=== PATIENT | female | born 1990 | race Caucasian/White ===

== ENCOUNTER 2016-06-12 19:18 | Inpatient (IN) | payer MEDICAID ==
[~2016-06-12] VITALS: Ht 162.6 cm; Wt 67.3 kg
[~2016-06-12 19:18] MED LIST: CEPH-443 PO
[2016-06-12 19:41] VITALS: Ht 162.6 cm; Wt 67.3 kg
[2016-06-12] MEDS ORDERED: PRENAT PO (19:41)
[2016-06-12 19:45] VITALS: BP 128/76; PULSE 67; RESP 18
[2016-06-12] MEDS ORDERED: AMPICILLIN 2 GM/NS (PMX) 100 ML ONE (19:45)
--- NOTE | 2016-06-12 19:50 | TRIAGE ---
OB Triage Datetime Report Generated by CPN: 06/12/2016 19:50 Datetime: 06/12/2016 19:41 EGA: 37.6 Arrived By: Wheelchair Arrived From: Home Chief Complaint: Contractions Movement: Present Contractions: Regular Time Contractions Began: 06/12/2016 17:00 Contractions: Every 2 minutes Rupture of Membranes: Denies Vaginal Bleeding: None Vaginal Discharge: Denies Recent Sexual Intercouse: Denies Abdominal Trauma: Not Applicable Patient Complaints: Contractions Time Provider Notified: 06/12/2016 19:37 Provider Notified: Dr. Barnard Initial Plan: CEFM, VE Datetime: 06/12/2016 19:30 Membrane Status: Intact Datetime: 06/12/2016 19:29 Vaginal Exam Dilatation (cms): 8.0 Datetime: 06/12/2016 19:26 Vaginal Exam Dilatation (cms): 7.5 Effacement (%): 90 Station: -2 Exam By: Yobani Milner RN Membrane Status: Intact Vaginal Bleeding: None Cervix, Consistency: Soft Cervix, Position: Anterior Presentation 'A': Cephalic Datetime: 06/12/2016 19:20 Time of Arrival: 06/12/2016 19:13
[2016-06-12] MEDS: LACTATED RINGER'S 1,000 ML IV SCH (19:58)
[2016-06-12] MEDS ORDERED: OXYTOCIN 30 UNITS/LR 500 ML IV PRN ×2 (20:00→22:00)
[2016-06-12] MEDS ORDERED: CARBOPROST 250 MCG INJ IM PRN ×2 (20:00→22:00)
[2016-06-12] MEDS ORDERED: LACTATED RINGER'S 1,000 ML IV PRN (20:00)
[2016-06-12] MEDS ORDERED: LIDOCAINE 1% (MPF) 30 ML INJ INJ PRN (20:00)
[2016-06-12] MEDS ORDERED: METHYLERGONOVINE 0.2 MG INJ IM PRN ×2 (20:00→22:00)
[2016-06-12] MEDS ORDERED: BUTORPHANOL 2 MG INJ IV PRN (20:00)
[2016-06-12] MEDS ORDERED: OXYTOCIN 30 UNITS/LR 500 ML IV SCH ×2 (20:00)
[2016-06-12] MEDS ORDERED: IBUPROFEN 600 MG TAB PO PRN (20:00)
[2016-06-12] MEDS ORDERED: AMPICILLIN 2 GM/NS (PMX) 100 ML IV ONE (20:00)
[2016-06-12] MEDS ORDERED: MISOPROSTOL 200 MCG TAB PR PRN ×2 (20:00→22:00)
[2016-06-12 20:08] LABS: ADD SCAN DIFF NO
[2016-06-12 20:10] LABS: BASOPHILS % 0.4 % (0.0-2.0); EOSINOPHILS % 0.2 % (0.0-7.0); HEMATOCRIT 38.3 % (37.0-47.0); HEMOGLOBIN 13.2 g/dl (12.0-16.0); LYMPHOCYTES # 3.3 10^3/ul (0.8-2.9); LYMPHOCYTES % 34.5 % (15.0-51.0); MEAN CORPUSCULAR HEMOGLOBIN 31.3 pg (29.0-33.0); MEAN CORPUSCULAR HGB CONC 34.5 g/dl (32.0-37.0); MEAN CORPUSCULAR VOLUME 90.8 fl (82.0-101.0); MEAN PLATELET VOLUME 10.6 fl (7.4-10.4); MONOCYTE # 0.5 10^3/ul (0.3-0.9); MONOCYTES % 4.8 % (0.0-11.0); NEUTROPHIL # 5.7 10^3/ul (1.6-7.5); NEUTROPHILS % 59.7 % (39.0-77.0); PLATELET COUNT 269 10^3/UL (140-415); RED BLOOD COUNT 4.22 10^6/ul (4.20-5.40); WHITE BLOOD COUNT 9.5 10^3/ul (4.8-10.8)
[2016-06-12 20:24] LABS: INR 0.83; PROTIME 11.4 Sec (12.2-14.2); PT RATIO 0.9
[2016-06-12 20:26] LABS: PARTIAL THROMBOPLASTIN TIME 22.7 Sec (25.0-35.0)
[2016-06-12] MEDS ORDERED: DEXTROSE 5%-LR 1,000 ML IV SCH (21:59)
[2016-06-12] MEDS ORDERED: LACTATED RINGER'S 1,000 ML IV* SCH (21:59)
[2016-06-12] MEDS ORDERED: WITCH HAZEL/GLYCERIN PAD PR PRN (22:00)
[2016-06-12] MEDS ORDERED: LANOLIN 7 GM TUBE TOP PRN (22:00)
[2016-06-12] MEDS ORDERED: DIBUCAINE 1% 30 GM OINT PR PRN (22:00)
[2016-06-12] MEDS ORDERED: BENZOCAINE 20% 56 ML SPRAY TOP PRN (22:00)
[2016-06-12] MEDS ORDERED: ZOLPIDEM 5 MG TAB PO PRN (22:00)
[2016-06-12] MEDS ORDERED: DIPHENHYDRAMINE 50 MG INJ IV PRN (22:00)
[2016-06-12] MEDS ORDERED: SENNA/DOCUSATE NA (8.6MG/50MG) TAB PO PRN (22:00)
[2016-06-12] MEDS ORDERED: ACETAMINOPHEN 325 MG TAB PO PRN (22:00)
[2016-06-12] MEDS ORDERED: ONDANSETRON 4 MG INJ IV PRN (22:00)
[2016-06-12] MEDS ORDERED: OXYCODONE/ASPIRIN (4.88/325) TAB PO PRN (22:00)
--- NOTE | 2016-06-12 22:08 | HP ---
Date/Time of Note Date/Time of Note DATE: 06/12/16 TIME: 22:01 OB - History Hx of Present Free Text/Dictation 26 Year-old with SIUP at 37 6/7 weeks presents with a chief complaint of ucs. She has been receiving her care with a clinic at [facility]. She states good movement. She denies nausea, vomiting, shortness of breath, chest pain, and abdominal pain between contractions, headache, visual changes, vaginal bleeding or LOF. Estimated Due Date: Jun 27, 2016 : 2 Para: 1 Spontaneous : 0 Therapeutic : 0 Care: Good Care Ultrasounds: Normal mid trimester US Obstetrical Complications: None Medical Complications: None Past Family/Social History * Past Medical, Surgical, Family and Obstetric Histories reviewed from chart. OB Admission Exam Vital Signs Vital Signs Vital Signs Date Time Temp Pulse Resp B/P Pulse Ox O2 Delivery O2 Flow Rate FiO2 06/12/16 19:45 98.5 67 18 128/76 Room Air Physical Exam HEENT: WNL Heart: Rhythm Normal Lungs: Clear Abdomen: WNL Extremities: Normal Cervical Dilatation: 7cm Station: -2 Membranes: Intact Heart Rate: 140's Accelerations: Accelerations Present Decelerations: No Decelerations Varibility: Moderate Contractions on Admission: < 5 Minutes Apart Intensity: Firm Last 72 hours Lab Results CBC & BMP 06/12/16 19:58 OB Assessment/Plan Other plan: 26 Year-old with SIUP at 37 6/7 weeks in labor. - FHR: No sign of metabolic acidosis- Category I - Continious EFM, toco - CBC, blood type and screen - Analgesia options with R/B/A discussed in detail with patient - Epidural per patient request - Please see the orders - Obtain labs and screening us from the clinic tomorrow Admission, procedures, expectations, risks and possible complications have been discussed in detail with the patient. Risk of vaginal delivery including but not limited to bleeding, infection, cervical laceration, placental retention, injury to fetus, blood transfusion, blood transfusion related infection, risk of anesthesia, adhesion, cervical laceration, episiotomy/laceration, possible delivery with risk of bleeding, infection, injury to other organs ( bowel, bladder, ureter, vessels, nerves), injury to fetus, blood transfusion, blood transfusion related infection, risk of anesthesia, scar and hernia formation, needs for future , removal of uterus or any other indicated surgery discussed with the patient. She expressed understanding and repeats the risks. All of her questions were answered; all appropriate consents will be signed. PHYSICIAN'S VERIFICATION OF INFORMED CONSENT: The patient was counseled regarding the procedure, its indications, risks, potential complications and alternatives and any questions were answered. Consent was obtained. PLANNED PROCEDURE/TREATMENT: Vaginal delivery with possible vacuum/forceps delivery episiotomy, repair of laceration possible delivery PHYSICIAN'S VERIFICATION OF INFORMED CONSENT FOR BLOOD TRANSFUSION: There is a reasonable possibility that blood transfusion will be necessary as a result of the patient's procedure. I have discussed the following with the patient/patient's legal sales representative sales manager: An explanation of the benefits and risks of the transfusion of blood or blood products and the possible alternatives. Al questions have been answered to the patient's/patients legal representatives satisfaction. INFORMED CONSENT: The patient has been informed of: - The nature of the proposed care, treatment, services, medic- Potential benefits, risks or side effects, including potential problems related to recuperation. - The likelihood of achieving care treatment and service goals. - Reasonable alternatives to the proposed care, treatment and service. - The relevant risks, benefits and side effects related to alternatives, including the possible results of not receiving care, treatment and services. - When indicated, any limitations on the confidentiality of information learned from or about the patient. - If appropriate, the risks, benefits and alternatives of the drugs to be used for sedation/analgesia including moderate sedation. СЕРГЕЙ STOLL Jun 12, 2016 22:08
--- NOTE | 2016-06-12 22:10 | LDN ---
Date/Time of Note Date/Time of Note DATE: 06/12/16 TIME: 22:08 Delivery Summary 26 Year-old with SIUP at 37 6/7 weeks delivered a female over first degree laceration at 20:27 Placenta Delivered: Spontaneously Perineum intact?: No Anesthesia type: Local Estimated blood loss: 83 Sponge & Needle done & correct: Yes All needle counts correct: Yes Any foreign bodies felt in the: No Problems: Infant Delivery Information Sex Sex: female Apgars 1 Minute: 9 5 Minute: 10 Suctioning Nose & mouth suctioned at manjit: Yes Umbilical Cord Umbilical cord with: 3 Vessels Cord presentations: no nuchal cord Cord Blood was obtained: Yes СЕРГЕЙ STOLL Jun 12, 2016 22:09
[2016-06-12 23:05] VITALS: BP 117/67; PULSE 70; RESP 18
[2016-06-12 23:35] VITALS: BP 128/75; PULSE 62; RESP 18
[2016-06-13] MEDS ORDERED: AMPICILLIN 1 GM/NS (PMX) 50 ML IV SCH
[2016-06-13] MEDS: IBUPROFEN 600 MG TAB PO SCH ×4 (00:29→18:21)
[2016-06-13] MEDS: LACTATED RINGER'S 1,000 ML IV SCH (03:11)
[2016-06-13 04:00] VITALS: BP 119/62; PULSE 58; RESP 18
[2016-06-13 07:21] LABS: ADD SCAN DIFF NO
[2016-06-13 07:36] LABS: BASOPHILS % 0.2 % (0.0-2.0); EOSINOPHILS % 0.1 % (0.0-7.0); HEMATOCRIT 31.7 % (37.0-47.0); HEMOGLOBIN 10.6 g/dl (12.0-16.0); LYMPHOCYTES # 3.2 10^3/ul (0.8-2.9); LYMPHOCYTES % 22.5 % (15.0-51.0); MEAN CORPUSCULAR HEMOGLOBIN 30.8 pg (29.0-33.0); MEAN CORPUSCULAR HGB CONC 33.4 g/dl (32.0-37.0); MEAN CORPUSCULAR VOLUME 92.2 fl (82.0-101.0); MEAN PLATELET VOLUME 10.7 fl (7.4-10.4); MONOCYTES % 7.2 % (0.0-11.0); NEUTROPHILS % 69.7 % (39.0-77.0); PLATELET COUNT 212 10^3/UL (140-415); RED BLOOD COUNT 3.44 10^6/ul (4.20-5.40); RED CELL DISTRIBUTION WIDTH 12.9 % (11.5-14.5); WHITE BLOOD COUNT 14.4 10^3/ul (4.8-10.8)
[2016-06-13 08:30] VITALS: BP 111/66; PULSE 59; RESP 18
[2016-06-13 12:15] VITALS: BP 108/65; PULSE 61; RESP 20
[2016-06-13 16:00] VITALS: BP 118/69; PULSE 61; RESP 19
--- NOTE | 2016-06-13 18:53 | QN ---
Documentation Comment PPD#1 is stable afebrile tolerates diet No VB Voids +BM Vs stable Gen NAD Abd soft NT ND Genitalia No blood at perinium --->discharge plan tomorrow ROMÁN ANGEL M.D. Jun 13, 2016 18:53
[2016-06-13 19:45] VITALS: BP 115/76; PULSE 76; RESP 18
[2016-06-14] MEDS: IBUPROFEN 600 MG TAB PO SCH ×3 (00:25→12:03)
[2016-06-14 04:20] VITALS: BP 115/69; PULSE 75; RESP 20
[2016-06-14 08:06] VITALS: BP 126/77; PULSE 61; RESP 18
[2016-06-14] MEDS ORDERED: DIPHTH/TET/ACEL PERTUSS (ADULT) 0.5 ML VIAL IM* ONE (09:00)
[2016-06-14] MEDS ORDERED: INFLUENZA VIRUS VACCINE 0.5 ML (DISPENSING) IM* ONE (09:00)
[2016-06-14] MEDS ORDERED: MEASLES,MUMPS,RUBELLA VACCINE INJ SC* ONE (09:00)
--- NOTE | 2016-06-14 11:46 | PN ---
Date/Time of Note Date/Time of Note DATE: 06/14/16 TIME: 11:44 OB Subjective Subjective Subjective Patient feels well. She is breast-feeding. Vaginal bleeding in the amount of menses. She denies any depressive symptoms. Urinated. Ambulated. Denies any symptoms. OB Objective Objective Objective GA: A&O, NAD Abdomen: Soft, non tender, fundus not tender, at the level of umbilicus palpable. Breasts: No evidence of engorgement or fissure or mastitis. Extremities: No calf tenderness, no click no edema. Hematology - 72 Hrs Test 06/12/16 19:58 06/13/16 07:11 Basophils # 0.010^3/ul (0.0-0.1) 0.010^3/ul (0.0-0.1) Basophils % 0.4% (0.0-2.0) 0.2% (0.0-2.0) Eosinophils # 0.010^3/ul (0.0-0.5) 0.010^3/ul (0.0-0.5) Eosinophils % 0.2% (0.0-7.0) 0.1% (0.0-7.0) Hematocrit 38.3% (37.0-47.0) 31.7% (37.0-47.0) L Hemoglobin 13.2g/dl (12.0-16.0) 10.6g/dl (12.0-16.0) L Lymphocytes # 3.310^3/ul (0.8-2.9) H 3.210^3/ul (0.8-2.9) H Lymphocytes % 34.5% (15.0-51.0) 22.5% (15.0-51.0) Mean Corpuscular Hemoglobin 31.3pg (29.0-33.0) 30.8pg (29.0-33.0) Mean Corpuscular Hemoglobin Concent 34.5g/dl (32.0-37.0) 33.4g/dl (32.0-37.0) Mean Corpuscular Volume 90.8fl (82.0-101.0) 92.2fl (82.0-101.0) Mean Platelet Volume 10.6fl (7.4-10.4) #H 10.7fl (7.4-10.4) H Monocytes # 0.510^3/ul (0.3-0.9) 1.010^3/ul (0.3-0.9) H Monocytes % 4.8% (0.0-11.0) 7.2% (0.0-11.0) Neutrophils # 5.710^3/ul (1.6-7.5) 10.010^3/ul (1.6-7.5) H Neutrophils % 59.7% (39.0-77.0) 69.7% (39.0-77.0) Nucleated Red Blood Cells # 0.010^3/ul (0.0-0.0) 0.010^3/ul (0.0-0.0) Nucleated Red Blood Cells % 0.0/100WBC (0.0-0.0) 0.0/100WBC (0.0-0.0) Platelet Count 26868^3/UL (140-415) 19628^3/UL (140-415) # Red Blood Count 4.2210^6/ul (4.20-5.40) 3.4410^6/ul (4.20-5.40) L Red Cell Distribution Width 13.0% (11.5-14.5) 12.9% (11.5-14.5) White Blood Count 9.510^3/ul (4.8-10.8) 14.410^3/ul (4.8-10.8) #H OB Assessment/Plan Reason for admission: active labor Other Assessment: IUP at 37 + weeks s/p PPD #2 Doing well. Mild anemia, Asymptomatic Other plan: DC home Follow-up with OB clinic in 6 weeks for 6 weeks check URMILA DOYLE MD Jun 14, 2016 11:46
--- NOTE | 2016-06-14 11:49 | PD.PPDC ---
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
[2016-06-14] MEDS ORDERED: SENN-88 PO (11:50)
[2016-06-14] MEDS ORDERED: IBUP-1542 PO (11:50)
[2016-06-14] MEDS ORDERED: FERR325C PO (11:50)
--- NOTE | 2016-06-14 11:53 | DS ---
Date/Time of Note Date/Time of Note DATE: 06/14/16 TIME: 11:51 Discharge Summary Admission/Discharge Info Admit Date/Time Jun 12, 2016 at 19:30 Discharge Date/Time 06/14/2016 Final Diagnosis Status post Patient Condition: Fair Consults None Procedures Hx of Present Illness 26-year-old female with at 37weeks and 6 days with care at outside facility presented in active labor. She had an uncomplicated intrapartum and course. She delivered a viable term female baby with 9 and 10. Her intrapartum and course was also non- complicated. She was rubella immune and had received Tdap and her course. On day #2 patient was noted to be stable enough to be discharged home. She was advised to have a follow-up in 6 weeks with her OB clinic. Her labs showed mild anemia. She was asymptomatic. She was discharged with iron pills Hospital Course Unremarkable Home Meds Active Scripts Ferrous Sulfate (Iron) 325 Mg Capsule.er, 325 MG PO BID, #60 CAP 1 Refill Prov:URMILA DOYLE MD 06/14/16 Sennosides/Docusate Sodium (Senna Plus Tablet) 1 Each Tablet, 1 TAB PO BID Y for CONSTIPATION for 10 Days, #40 TAB 1 Refill Prov:URMILA DOYLE MD 06/14/16 Ibuprofen* (Ibuprofen*) 600 Mg Tablet, 600 MG PO Q6 for 10 Days, #40 TAB 1 Refill Prov:URMILA DOYLE MD 06/14/16 Reported Medications Multivit/Min/Fol Ac/Iron/Pren* ( S*) 1 Tab Tab, 1 TAB PO DAILY, TAB 06/12/16 Discontinued Scripts Cephalexin* (Keflex*) 500 Mg Capsule, 500 MG PO QID for 5 Days, CAP Prov:CAROL ANN PARRISH MD 12/09/15 Follow-up Plan OB clinic in 6 weeks URMILA DOYLE MD Jun 14, 2016 11:53
== END 2016-06-14 14:00 | disposition home or self-care (01) | DRG 775 ==
LOC: OBT 19:18 → L-D 19:19 → OBT 19:30 → L-D 19:30 → PP1 23:03
PROVIDERS: ADMIT Obstetrics & Gynecology; ATTEND Obstetrics & Gynecology
PROC: 10E0XZZ Delivery of Products of Conception, External Approach (ICD-10-PCS; principal; 2016-06-12)
PROC: 0HQ9XZZ Repair Perineum Skin, External Approach (ICD-10-PCS; 2016-06-12)
PROC: 3E0234Z Introduction of Serum, Toxoid and Vaccine into Muscle, Percutaneous Approach (ICD-10-PCS; 2016-06-14)
DX: O70.0 First degree perineal laceration during delivery (principal); O90.81 Anemia of the puerperium; Z3A.37 37 weeks gestation of pregnancy; Z37.0 Single live birth; Z23 Encounter for immunization
CPT/HCPCS: 85025; 85610; 85730; 86592; 86900; 86901; 87340; 90686; 90715; G0463; J0290; J2590; J7120; J7121